=== PATIENT | female | born 1995 | race Caucasian/White ===

== ENCOUNTER 2017-02-02 22:47 | Emergency (ER) | payer OTHER ==
[2017-02-02 22:51] VITALS: RESP 18
[2017-02-02] MEDS ORDERED: NS 1,000 ML IV ONE (23:13)
[2017-02-02] MEDS ORDERED: SUMAtriptan 6 MG/0.5 ML VIAL SC ONE (23:13)
[2017-02-02] MEDS ORDERED: METOCLOPRAMIDE 10 MG/2 ML VIAL IVP ONE (23:13)
[2017-02-02] MEDS ORDERED: ACETAMINOPHEN 500 MG TAB PO ONE (23:13)
[2017-02-02] MEDS ORDERED: DEXAMETHASONE 10 MG/ML VIAL IVP ONE (23:15)
--- NOTE | 2017-02-02 23:17 | EDPHY ---
H & P Stated Complaint: migraine, r-sided numbness, dificulty spelling/reading Time Seen by Provider: 02/02/17 22:56 HPI/ROS: HPI The patient presents with headache which began at about 7pm. She says it began with an aura and then she had the slow development of a left-sided retro- orbital sharp and throbbing headache associated with nausea. She took Advil, Excedrin, Ativan to treat the headache, however it persisted. She is complaining that her left arm feels tense, right side of her face and right hand feel numb to her. She also reports some difficulty speaking and mixing up her words. As she also reports photophobia. She says she has a history of migraine and cluster type headaches. 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 She denies any changes in her vision.. REVIEW OF SYSTEMS Constitutional: No fever, no chills. Eyes: No discharge. ENT: No sore throat. Cardiovascular: No chest pain, no palpitations. Respiratory: No cough, no shortness of breath. Gastrointestinal: No abdominal pain, no vomiting. Genitourinary: No hematuria. Musculoskeletal: No back pain. Skin: No rashes. Neurological: Positive for headache. PMHx: Migraine, anxiety Soc Hx: College student PHYSICAL General Appearance: Alert, lying in a dark room with a towel across her forehead Eyes: Pupils equal and round no pallor or injection ENT, Mouth: Mucous membranes moist Respiratory: There are no retractions, lungs are clear to auscultation Cardiovascular: Regular rate and rhythm Gastrointestinal: Abdomen is soft and non-tender, no masses, bowel sounds normal Neurological: Alert and oriented x3, cranial nerves 2-12 intact, normal facial sensation, 5/5 strength in upper and lower extremities that is symmetric, no pronator drift is present Skin: Warm and dry, no rashes Musculoskeletal: Neck is supple non tender Extremities: symmetrical, full range of motion Psychiatric: Patient is oriented X 3, there is no agitation Source: Patient Exam Limitations: No limitations - Personal History LMP (Females 10-55): 22-28 Days Ago Current Tetanus/Diphtheria Vaccine: Yes - Medical/Surgical History Hx Asthma: No Hx Chronic Respiratory Disease: No Hx Diabetes: No Hx Cardiac Disease: No Hx Renal Disease: No Hx Cirrhosis: No Hx Alcoholism: No Hx HIV/AIDS: No Hx Splenectomy or Spleen Trauma: No Other PMH: PMH: anxiety; mono; add; L5S1fx; migraines. PSH: denies - Social History Smoking Status: Never smoked Constitutional: Initial Vital Signs Temperature (C) 36.3 C 02/02/17 22:48 Heart Rate 112 H 02/02/17 22:48 Respiratory Rate 18 02/02/17 22:48 Blood Pressure 132/100 H 02/02/17 22:48 O2 Sat (%) 98 02/02/17 22:48 O2 Delivery Mode Room Air Allergies/Adverse Reactions: No Known Allergies Allergy (Verified 02/02/17 22:51) Home Medications: Medication Instructions Recorded Ativan 0.5 mg 01/01/15 Concerta 54 mg 01/01/15 Fluoxetine HCl [Prozac 40 mg] 01/01/15 Norgestimate-Ethinyl Estradiol 01/01/15 [Mononessa 28 Tablet] RITALIN LA 02/02/17 Medical Decision Making Differential Diagnosis: This is a 21-year-old college student with history of migraine headaches who presents from home with a headache associated with neurologic deficits. The headache is unilateral, retro-orbital, throbbing in nature and associated with nausea and photophobia. She did have a preceding aura. She also has sensation of facial numbness and unilateral upper extremity numbness, however her neurologic exam is normal. Triage nurse reports that she had contractions of her left upper extremity, likely due to carpopedal spasm from possible hyperventilation. This is now resolved. Differential diagnosis at this time is broad and includes atypical migraine, subarachnoid hemorrhage, venous sinus thrombosis. Given that she has a history of migraine headache and her neurologic deficits are quite subjective, I will begin treating her as a migraine with fluids and medications. I will reassess her frequently. In the emergency department, the patient was monitored for several hours. She had no ongoing neurologic deficits and had no diminished sensation throughout her ER stay. She did have ongoing headache and required additional dose of medication with improvement in her symptoms. I feel she likely is suffering from an atypical migraine. She eventually felt well enough to go home and asked to be discharged. I have encouraged her to take ibuprofen or Excedrin migraine for the next 1-2 days until her headache is completely resolved. I have advised her that she needs to return if she has any neurologic symptoms whatsoever and she is in agreement with this plan. - Data Points Medications Given: Discontinued Medications Acetaminophen (Tylenol) 1,000 mg PO EDNOW ONE Stop: 02/02/17 23:14 Last Admin: 02/02/17 23:24 Dose: 1,000 mg Dexamethasone (Decadron Injection) 10 mg IVP EDNOW ONE Stop: 02/02/17 23:16 Last Admin: 02/02/17 23:24 Dose: 10 mg Sodium Chloride (Ns) 1,000 mls @ 3,000 mls/hr IV EDNOW ONE Stop: 02/02/17 23:32 Last Admin: 02/02/17 23:24 Dose: 1,000 mls Lidocaine HCl 100 mg/ Sodium (Chloride) 110 mls @ 600 mls/hr IV EDNOW ONE Stop: 02/03/17 00:35 Last Admin: 02/03/17 00:48 Dose: 110 mls Ketorolac Tromethamine (Toradol) 15 mg IVP/IM EDNOW ONE Stop: 02/03/17 00:26 Last Admin: 02/03/17 00:47 Dose: 15 mg Metoclopramide HCl (Reglan Injection) 10 mg IVP EDNOW ONE Stop: 02/02/17 23:14 Last Admin: 02/02/17 23:24 Dose: 10 mg Sumatriptan Succinate (Imitrex Sc Injection) 6 mg SC EDNOW ONE Stop: 02/02/17 23:14 Last Admin: 02/02/17 23:23 Dose: 6 mg Departure - Departure Disposition: Home, Routine, Self-Care Clinical Impression: Paresthesia Headache Qualifiers: Headache type: unspecified Headache chronicity pattern: acute headache Intractability: not intractable Qualified Code(s): R51 - Headache Condition: Good Instructions: Migraine Headache (ED) Additional Instructions: Please return to the emergency department if your worse in any way. If you develop any numbness or tingling, you should also return. Otherwise please follow-up with your regular doctor in 1-2 days. Referrals: [facility] [Cl[facility]] - As per Instructions Stand Alone Forms: School Excuse
[2017-02-03] MEDS ORDERED: KETOROLAC 15 MG/1 ML SDV IVP/IM ONE (00:25)
[2017-02-03] MEDS ORDERED: LIDOCAINE 1% 100 MG in NS 100 ML IV ONE (00:25)
[2017-02-03 00:28] VITALS: TEMP 98.1
[2017-02-03] MEDS ORDERED: LIDOCAINE 1% 300 MG/30 ML SDV ONE (00:40)
[2017-02-03 01:48] VITALS: BP 115/73; PULSE 76; O2SAT 98
== END 2017-02-03 01:42 | disposition home or self-care (01) ==
DX: R51 Headache (principal); R20.2 Paresthesia of skin
CPT/HCPCS: 96374; J1100; J1885; J2765; J3030

== ENCOUNTER 2018-07-09 11:34 | Emergency (ER) | payer OTHER ==
[2018-07-09] MEDS ORDERED: NS 2,000 ML IV ONE (12:07)
[2018-07-09] MEDS ORDERED: ONDANSETRON 4 MG/2 ML VIAL IVP ONE (12:08)
[2018-07-09 12:13] LABS: PLATELET COUNT 287 10^3/uL (150-400)
--- NOTE | 2018-07-09 12:16 | EDPHY ---
H & P Stated Complaint: Possible food poisoning, n/v/d, body aches, abd pain Time Seen by Provider: 07/09/18 12:06 HPI/ROS: CHIEF COMPLAINT: "I think I ate some bad food" HISTORY OF PRESENT ILLNESS: 23-year-old female generally healthy with no history of chronic abdominal pathology complaining of nausea vomiting diarrhea which started approximately 45 min after eating at a Student picnic event. She is complaining of intractable nausea vomiting diarrhea throughout the evening and currently. Intermittent abdominal cramping. No melena hematochezia. No hematemesis. No recent antibiotic use, untreated water sources or international travel. REVIEW OF SYSTEMS: 10 systems reviewed and negative with the exception of the elements mentioned in the history of present illness PAST MEDICAL & SURGICAL HISTORY: No pertinent medical or surgical history SOCIAL HISTORY:Migraine headache PHYSICAL EXAM (Prior to examination, patient consented to physical exam, hands were washed and my usual and customary physical exam procedures followed) 1) GENERAL: Well-developed, well-nourished, alert and oriented. Appears uncomfortable 2) HEAD: Normocephalic, atraumatic 3) HEENT: Pupils equal, round, reactive to light bilaterally. Sclera anicteric. Nasopharynx, oropharynx, clear, no lesions. Dry mucous membranes. 4) NECK: Full range of motion, no meningeal signs. 5) LUNGS: Clear auscultation bilaterally, no wheezes, no rhonchi, no retractions. 6) HEART: Regular rate and rhythm, no murmur, no heave, no gallop. 7) ABDOMEN: No guarding, no rebound, no focal tenderness, negative McBurney's, negative Mcguire's, negative Rovsing's, negative peritoneal sign, 8) MUSCULOSKELETAL: Moving all extremities, no focal areas of tenderness, no obvious trauma. No peripheral edema or discoloration. 9) BACK: No CVA tenderness, no midline vertebral tenderness, no fluctuance, no step-off, no obvious trauma, no visual or palpable abnormality. 10) SKIN: No rash, no petechiae. 11) Psychiatric: Patient is oriented X 3, there is no agitation. DIFFERENTIAL DIAGNOSIS: My differential diagnosis includes, but is not limited to, acute appendicitis, acute cholecystitis, bowel obstruction, acute pancreatitis, ovarian torsion, ectopic , gastritis and urinary tract infection. The patient understands that this diagnosis is provisional and can never be 100% accurate. This is a partial list of diagnoses considered. These considerations are based on history, physical exam, past history and reassessment. - Personal History LMP (Females 10-55): 8-14 Days Ago Current Tetanus Diphtheria and Acellular Pertussis (TDAP): Yes - Medical/Surgical History Hx Asthma: No Hx Chronic Respiratory Disease: No Hx Diabetes: No Hx Cardiac Disease: No Hx Renal Disease: No Hx Cirrhosis: No Hx Alcoholism: No Hx HIV/AIDS: No Hx Splenectomy or Spleen Trauma: No Other PMH: PMH: anxiety; mono; add; L5S1fx; migraines. PSH: denies - Social History Smoking Status: Never smoked Constitutional: Initial Vital Signs Temperature (C) 36.6 C 07/09/18 11:36 Heart Rate 111 H 07/09/18 11:36 Respiratory Rate 16 07/09/18 11:36 Blood Pressure 114/73 07/09/18 11:36 O2 Sat (%) 95 07/09/18 11:36 O2 Delivery Mode Room Air Allergies/Adverse Reactions: No Known Allergies Allergy (Verified 02/02/17 22:51) Home Medications: Medication Instructions Recorded Ativan 0.5 mg 01/01/15 Concerta 54 mg 01/01/15 Fluoxetine HCl [Prozac 40 mg] 01/01/15 Norgestimate-Ethinyl Estradiol 01/01/15 [Mononessa 28 Tablet] RITALIN LA 02/02/17 Ondansetron Odt [Zofran Odt] 4 mg PO Q4PRN PRN #10 tab 07/09/18 Medical Decision Making ED Course/Re-evaluation: 2:05 p.m.: Re-evaluation with serial exams. Patient feeling "totally better" after IV Toradol and IV fluids. I Re-examined her abdomen which is soft , no guarding , no rebound, no McBurney's point pain, negative Mcguire sign. The patient forms me at this time that she has received multiple text messages from friends all who are exhibiting similar gastrointestinal symptoms after eating same food last evening. Think that acute surgical abdominal pathology such as acute appendicitis is less than likely this patient. Do not think that imaging studies are indicated. Discussed this with mother and patient and they are in agreement. Plan will be discharge home with oral Zofran, clear liquid with management bland food, usual customary abdominal precautions instructions. They feel comfortable being discharged. Care of patient under supervision of secondary supervising physician Dr Ruff . - Data Points Laboratory Results: Laboratory Results 07/09/18 12:07 07/09/18 12:00 Medications Given: Discontinued Medications Sodium Chloride (Ns) 2,000 mls @ 0 mls/hr IV ONCE ONE PRN Reason: Wide Open Stop: 07/09/18 12:08 Last Admin: 07/09/18 12:15 Dose: 2,000 mls Sodium Chloride (Ns) 1,000 mls @ 0 mls/hr IV ONCE ONE PRN Reason: Wide Open Stop: 07/09/18 13:18 Last Admin: 07/09/18 13:23 Dose: 1,000 mls Ketorolac Tromethamine (Toradol) 15 mg IVP EDNOW ONE Stop: 07/09/18 13:15 Last Admin: 07/09/18 13:16 Dose: 15 mg Ondansetron HCl (Zofran) 4 mg IVP EDNOW ONE Stop: 07/09/18 12:09 Last Admin: 07/09/18 12:14 Dose: 4 mg Departure - Departure Disposition: Home, Routine, Self-Care Clinical Impression: Volume depletion Nausea & vomiting Qualifiers: Vomiting type: unspecified Vomiting Intractability: non-intractable Qualified Code(s): R11.2 - Nausea with vomiting, unspecified Condition: Good Instructions: Acute Nausea and Vomiting (ED) Additional Instructions: Seek immediate medical attention if you develop new or worsening symptoms, if you develop fevers, chills, inability to tolerate oral intake or any other symptoms that concerns you. Referrals: [facility] [[facility]] - 1 day, if not improved Stand Alone Forms: School Excuse Prescriptions: Ondansetron Odt [Zofran Odt] 4 mg PO Q4PRN PRN #10 tab PRN Reason: Nausea
[2018-07-09] MEDS ORDERED: KETOROLAC 15 MG/1 ML SDV IVP ONE (13:14)
[2018-07-09] MEDS ORDERED: NS 1,000 ML IV ONE (13:17)
[2018-07-09 14:36] VITALS: BP 114/66
== END 2018-07-09 14:35 | disposition home or self-care (01) ==
DX: R11.2 Nausea with vomiting, unspecified (principal); E86.9 Volume depletion, unspecified
CPT/HCPCS: 96374; J1885; J2405